=== PATIENT | male | born 1950 | race Caucasian/White ===

== ENCOUNTER 2018-09-02 11:56 | Outpatient (CLI) | payer MEDICARE ==
--- NOTE | 2018-09-02 15:29 | RAD ---
LEFT KNEE 2 VIEWS: Date: 09/02/18 HISTORY: M17.12 unilateral primary osteoarthritis of left knee. COMPARISON: None. FINDINGS: There is mild medial compartment joint space narrowing. Mild osteopenia. No acute fracture or malalig nment. Mild enthesopathic changes of both the quadriceps and the patellar tendons. Mild vascular calc ifications. IMPRESSION: Moderate medial compartment degenerative disease. POS: NATHALIE
--- NOTE | 2018-09-02 15:31 | RAD ---
2 VIEWS RIGHT KNEE: Date: 09/02/18 COMPARISON: None. HISTORY: Knee pain, primary osteoarthritis. FINDINGS: There is mild/moderate patellofemoral joint space narrowing with posterior patellar osteophyte format ion. There is atherosclerotic calcification proximal to the distal right femur. No knee joint effusio n, displaced fracture, or evidence of dislocation. There is moderate/severe medial compartment narrow ing. IMPRESSION: Degenerative joint disease with no acute fracture or dislocation. POS: SERGIO
== END 2018-09-02 11:57 | disposition home or self-care (01) ==
LOC: BICRAD 11:56
PROVIDERS: ATTEND Internal Medicine Rheumatology
DX: M17.0 Bilateral primary osteoarthritis of knee (principal)